=== PATIENT | male | born 1970 | race Caucasian/White ===

== ENCOUNTER 2018-01-15 05:29 | Inpatient (IN) ==
[2018-01-15] MEDS ORDERED: Propofol Inj 500 MG/50 ML Vial ONE ×2 (06:45→11:10)
[2018-01-15] MEDS ORDERED: Sodium Chlor 0.9% Inj 250 ML ONE (06:50)
[2018-01-15] MEDS ORDERED: Chlorhexidine 4% Topical 120 APPLIC/120 ML Bottle TOPICAL SCH (07:00)
[2018-01-15] MEDS ORDERED: Vancomycin Inj 1,000 MG in Sodium Chlor 0.9% Inj 250 ML IV.SIG SCH (07:00)
[2018-01-15] MEDS ORDERED: ceFAZolin 2 GM Premix Inj 2 GM/50 ML PIGGYBACK IV.SIG SCH (07:00)
[2018-01-15] MEDS ORDERED: Betamethasone Sod Phos/Acetate Inj 30 MG/5 ML Vial IM ONE (07:05)
[2018-01-15] MEDS ORDERED: Gelatin Size 100 Topical Foam ONE (07:05)
[2018-01-15] MEDS ORDERED: ceFAZolin 1 GM Premix Inj 2 GM/100 ML FROZ.PIGGY IV.SIG ONE ×2 (07:40→11:29)
[2018-01-15] MEDS: Bupivacaine/Epinephrine Inj 0.25% 50 ML Vial ONE ×2 (08:25→13:08)
[2018-01-15] MEDS ORDERED: fentaNYL Citrate Inj 100 MCG/2 ML Ampul ONE ×2 (10:46→13:36)
[2018-01-15] MEDS ORDERED: Bupivacaine Liposomal PF 1.3% Inj 20 ML Vial ONE (13:00)
[2018-01-15] MEDS ORDERED: Bupivacaine Liposomal PF 1.3% Inj 20 ML Vial INFILTRATN ONE (13:03)
[2018-01-15] MEDS ORDERED: Chlorhexidine Gluconate 2% 1 Pack (2 Cloths) TOPICAL ONE (13:15)
[2018-01-15] MEDS ORDERED: Metoprolol Tartrate 25 MG Tablet PO ONE (13:15)
[2018-01-15] MEDS ORDERED: Post-op Orders (for Pharmacy) OTHER STA (13:27)
[2018-01-15] MEDS ORDERED: Aluminum/Magnesium/Simethacone Susp 30 ML UDC PO PRN (13:27)
[2018-01-15] MEDS ORDERED: Bisacodyl 10 MG Supp RECTAL PRN (13:27)
[2018-01-15] MEDS ORDERED: Morphine Sulfate Inj 2 MG/ML Vial IV.SIG ONE (13:27)
[2018-01-15] MEDS ORDERED: Naloxone Inj 0.4 MG/ML Vial IV.PUSH PRN (13:27)
--- NOTE | 2018-01-15 13:31 | P.BOP ---
Date of procedure: 01/15/18 Procedure: 1. L5-S1 Clarke laminectomy 2. L5-S1 segmental instrumentation with bilateral pedicle screws 3. L5-S1 combined posterior lateral and transforaminal interbody fusion with placement of interbody device 4. Placement of autograft 5. Placement of allograft Implants: Spine wave capture pedicle screws Spine wave Staxx interbody device Anesthesia: GETA Surgeon: Beverly Saldaña MD Estimated blood loss (mL): 350 Pathology: none sent Condition: stable Disposition: PACU
[2018-01-15] MEDS ORDERED: Morphine Inj 4 MG/ML Vial ONE (13:35)
--- NOTE | 2018-01-15 13:55 | XR ---
EXAM DATE: 01/15/2018 1:18 PM EST AGE/SEX: 47 years / Male INDICATIONS: L5/S1 laminectomy with fusion. CLINICAL DATA: This is the patient's initial encounter. Patient reports that signs and symptoms have been present for 1 day and indicates a pain score of Nonresponsive. MEDICAL/SURGICAL HISTORY: None. None. COMPARISON: No prior exams available for comparison. FINDINGS: 2 spot images obtained in the operating room during a procedure demonstrates bilateral posterior pedi cular screws at the L5-S1 level. The lamina also appears to have been surgically resected. Material i s also present within the L5-S1 disc space. CONCLUSION: Images document surgical changes at L5-S1, as above. Electronically signed by: Bryant Florian MD 01/15/2018 1:53 PM EST
[2018-01-15] MEDS ORDERED: Sodium Chlor 0.9% Inj 500 ML IV.SIG SCH (14:00)
[2018-01-15] MEDS: Morphine Inj 30 MG/30 ML PCA.VIAL PCA PRN ×2 (14:07→18:08)
[2018-01-15] MEDS ORDERED: *Meperidine Inj 25 MG/ML Vial PERIprocedural Use ONLY ONE (14:20)
[2018-01-15] MEDS: Morphine Sulfate 15 MG SR Tablet PO SCH (14:58)
[2018-01-15] MEDS: HYDROmorphone PF Inj 2 MG/ML Vial IV.PUSH PRN (23:22)
[2018-01-16] MEDS: Morphine Sulfate 15 MG SR Tablet PO SCH ×2 (01:37→12:58)
[2018-01-16] MEDS: HYDROmorphone PF Inj 2 MG/ML Vial IV.PUSH PRN ×2 (03:33→09:05)
--- NOTE | 2018-01-16 07:17 | P.PNOP ---
Subjective Interval history: Patient resting comfortably this morning. States pain is relatively well controlled Physical Exam Vital signs: Vital Signs 01/15/18 13:27 01/15/18 13:30 01/15/18 13:45 Temperature 98.7 F Pulse Rate 88 85 93 H Respiratory Rate 18 16 15 Blood Pressure 85/50 L 90/50 L 104/57 L Pulse Oximetry 96 96 96 01/15/18 14:00 01/15/18 14:14 01/15/18 14:15 Temperature Pulse Rate 90 92 H Respiratory Rate 14 14 Blood Pressure 102/59 L 101/52 L Pulse Oximetry 95 95 97 01/15/18 14:30 01/15/18 14:45 01/15/18 15:00 Temperature Pulse Rate 88 81 82 Respiratory Rate 13 12 12 Blood Pressure 95/53 L 102/58 L 102/55 L Pulse Oximetry 96 98 98 01/15/18 15:30 01/15/18 16:55 01/15/18 19:45 Temperature 98.6 F 97.2 F L 98 F Pulse Rate 79 85 100 H Respiratory Rate 14 19 18 Blood Pressure 105/63 111/63 109/57 L Pulse Oximetry 98 97 96 01/15/18 23:25 01/16/18 03:40 Temperature 97.8 F 99.1 F Pulse Rate 100 H 92 H Respiratory Rate 18 18 Blood Pressure 106/51 L 96/51 L Pulse Oximetry 96 93 L Intake & Output 01/15/18 01/16/18 01/16/18 18:59 06:59 18:59 Intake Total 2700 / 2700 1320 / 1320 Output Total 2300 / 2300 700 / 700 Balance 400 / 400 620 / 620 Weight 107.7 kg Intake: IV 200 / 200 1000 / 1000 LR 1000 mL Inj 1,000 ML @ 80 1000 / 1000 mls/hr IV.SIG .[id number] MALOU Rx#: [id number] Ancef 1 GM Premix Inj 2 gm In 200 / 200 100 ml @ 0 mls/hr IV.SIG .STK- MED ONE Rx#:[id number] Oral 320 / 320 Anesthesia Amount 2500 / 2500 Output: Urine 700 / 700 Estimated Blood Loss 350 / 350 Urine Amount (Catheter) 1750 / 1750 Indwelling Urethral Catheter 1750 / 1750 Wound Drainage 200 / 200 # 1 Lower Back 200 / 200 Other: Date of Last Bowel Movement 01/14/18 # Bowel Movements 0 Narrative: Awake, alert, NAD Back: dressing and HV in place BLE: 5/5 strength throughout. Improving RLE N/T. BCR - Urinary Catheter Management Indwelling Urethral Catheter Cath placed during this visit: yes Reason for continuing: Hourly intake/output Insertion date: 01/15/18 Insertion time: 07:53 Results - Imaging Impressions Lumbar Spine X-Ray 01/15/18 00:00 CONCLUSION: Images document surgical changes at L5-S1, as above. Assessment and Plan - Assessment and Plan 47yo M POD#1 s/p L5-S1 decompression with instrumented fusion, doing well 1. PT for mobilization. Weave brace when OOB 2. Reyes to be removed this morning 3. HV to be removed this morning and dressing changed 4. Patient on chronic pain medications managed by Dr. Blair. Patient has medications at home and does not require new Rx on discharge. Will provide flexeril script. 5. Patient may discharge home when mobilizing safely with PT and voiding after reyes removal
--- NOTE | 2018-01-16 08:05 | P.OP ---
Date of procedure: 01/15/18 Procedure: 1. L5-S1 Clakre laminectomy with laminectomy, facetectomy and foraminotomies 2. L5-S1 segmental instrumentation with bilateral pedicle screws 3. L5-S1 combined posterolateral and transforaminal interbody fusion with placement of interbody device 4. Placement of autograft 5. Placement of allograft Implants: SpineWave Capture pedicle screws and rods SpineWave Staxx expandible interbody cage Novabone, NuCel stem Cell, and autograft Anesthesia: GETA Surgeon: Beverly Saldaña MD Estimated blood loss (mL): 350 Pathology: none sent Operation and Findings: Indications for procedure: Patient is a 47-year-old gentleman who failed to respond to conservative treatment for his chronic low back pain and right leg radiculopathy. Patient was found to have significant right-sided foraminal stenosis and left paracentral disc bulge with calcification. Patient also was found to have spondylolysis and therefore recommendation for L5-S1 decompression with instrumented fusion. Risks, benefits, alternatives were discussed with the patient. At this time he has consented for the above- mentioned procedure. Description of procedure: Patient was brought back to the operating room where general anesthesia then ensued. Ralph catheter was then inserted along with placement of neuromonitoring leads. Patient was then carefully positioned prone on the operating room table with all bony prominences well-padded. The patient's back was then prepped and draped in standard sterile fashion with alcohol followed by Hibiclens and ChloraPrep. Preoperative antibiotics given within 1 hour of incision. A timeout was performed to identify the appropriate patient, side, site and procedures to be performed. Fluoroscopy was utilized to localize the site for incision centered over L5-S1 in the midline. Sharp dissection was made through the skin, subcutaneous tissue. The fascia was identified and incised in midline. The paraspinal muscles were carefully elevated off of midline and the laminas. The L5-S1 facet was identified along with the L5 transverse process and S1 sacral ala. There were bilateral pars defects identified and significant instability within the L5-S1 segment. Attention was then turned towards pedicle screw placement. Pedicle screws were placed bilaterally at L5 and S1. Screws were placed under the use of C-arm guidance. A commercial drone pilot hole was created with a bur followed by a pedicle probe. A ball-tipped probe was utilized to confirm intraosseous positioning along with C- arm. This was subsequently tapped, probed again and then appropriately length screws were placed. AP and lateral regress then measured the screws appeared appropriately positioned. The screws were then stimulated all with appropriate threshold of approximately 20 or higher. I then turned my attention towards decompression. Central decompression was initially carried out in the form of a Clarke laminectomy. This was performed with a high-speed bur, rongeurs and Kerrisons at L5 and S1. Once the Clarke laminectomy was performed, decompression was carried out over the lateral recesses undercutting the medial aspect of the superior articular facet and removing all hypertrophic capsular ligamentous tissue. At this time the right L5-S1 facet was removed with the use of a high-speed bur and rongeur, and Kerrisons. This was completed with careful attention paid to protecting and decompressing the L5 nerve root on the right. The L5 exiting nerve root was identified and the S1 traversing nerve root also identified. The thecal sac and traversing S1 nerve root was protected with a nerve root retractor and the disc space identified. Hemostasis was achieved with bipolar electrocautery and hemostatic agents. An annulotomy was performed at L5-S1 disc space and the disc was then removed with the use of pituitaries and curettes. The disc space was then subsequently shaved to a size 10. Again, disc material was thoroughly removed with the use of curettes and pituitaries. This was performed until all cartilaginous material was removed from the disc space. The disc space was thoroughly irrigated. Local autograft along with Novabone and NuCel stem cells were then packed into the disc space. The cage was then placed into the disc space into appropriate position just across midline and in the anterior aspect of the disc space. Once inserted into appropriate position, the cage was expanded to 11 mm. At this point, there was good cheondoism of lordosis and very stable interbody. This was verified to be in appropriate position in the disc space on AP and lateral radiographs. At this time, bilateral exiting L5 nerve root and S1 nerve roots appeared to be free of compression. A [place] 3 was easily passed out the foramen bilaterally. Premeasured and precut rods were then placed between L5 and S1 screws bilaterally and fixed with set screws. These were final tightened. Final radiographs demonstrated that all hardware appeared to be in appropriate position on both AP and lateral radiographs. Copious irrigation was then performed. The transverse processes at L5 and the sacral ala at S1 on the left were decorticated with a bur and local autograft along with allograft were placed into the posterolateral gutter. A hemovac drain was placed through a lateral stab incision. Vancomycin powder was then placed into the wound. The fascia was then closed with #0 Vicryl suture. This obtaining tissue was closed with 2-0 Vicryl sutures and the skin closed with nylon. Sterile dressings were applied and the patient was carefully transferred supine onto his hospital bed. Patient was awoken from general anesthesia without complication. It should be noted that the patient remained hemodynamically stable throughout the entire procedure and that there were no adverse neuromonitoring changes.
[2018-01-16 08:49] LABS: Hematocrit 33.1 % (39.0-51.0); Hemoglobin 11.6 gm/dL (13.0-17.0); Mean Corpuscular Hemoglobin 31.7 pg (27.0-34.0); Mean Corpuscular Volume 90.8 fL (80.0-100.0); Mean Platelet Volume 7.9 fL (7.0-11.0); Platelet Count 234 th/mm3 (150-450); Red Blood Count 3.65 mil/mm3 (4.50-5.90); Red Cell Distribution Width 13.1 % (11.6-17.2); White Blood Count 15.6 th/mm3 (4.0-11.0)
[2018-01-16] MEDS ORDERED: Lisinopril 20 MG Tablet PO SCH (09:00)
[2018-01-16] MEDS ORDERED: Pantoprazole Sodium 20 MG DR Tablet PO SCH (09:00)
[2018-01-16] MEDS ORDERED: [UNRECOGNIZED DRUG - OTHER] NASAL SCH (09:00)
== END 2018-01-16 13:18 | disposition home or self-care (01) ==
LOC: HSDC 05:29 → HSDI 13:30 → N06 15:50
PROVIDERS: ADMIT Orthopaedic Surgery Orthopaedic Surgery of the Spine; ATTEND Orthopaedic Surgery Orthopaedic Surgery of the Spine